=== PATIENT | female | born 1970 | race Caucasian/White ===

== ENCOUNTER 2016-10-30 16:50 | Emergency (ER) | payer MEDICARE, OTHER ==
[~2016-10-30] VITALS: Ht 172.7 cm; Wt 77.0 kg
[~2016-10-30 16:50] MED LIST: ALBU8.5H
[2016-10-30] MEDS ORDERED: CYCLOBENZAPRINE HCL 10 MG TABLET PO ONE (21:15)
[2016-10-30] MEDS ORDERED: IBUPROFEN 600 MG TABLET PO ONE (22:30)
[2016-10-30 22:31] VITALS: BP 146/81
== END 2016-10-30 22:48 | disposition home or self-care (01) ==
LOC: EMS 16:51
DX: M54.5 Low back pain (principal); J45.909 Unspecified asthma, uncomplicated; F17.210 Nicotine dependence, cigarettes, uncomplicated; V89.0XXA Person injured in unspecified motor-vehicle accident, nontraffic, initial encounter; Y93.89 Activity, other specified; Y92.62 Dock or shipyard as the place of occurrence of the external cause; Y99.8 Other external cause status
CPT/HCPCS: 70450; 72125; 99284; 99406

== ENCOUNTER 2017-08-28 13:05 | Emergency (ER) | payer MEDICARE ==
[~2017-08-28] VITALS: Ht 172.7 cm; Wt 81.8 kg
[~2017-08-28 13:05] MED LIST changes: -ALBU8.5H; +ALBU8.5H8
[2017-08-28 13:15] VITALS: BP 122/73
== END 2017-08-28 14:05 | disposition left against medical advice (07) ==
LOC: EMS 13:06
DX: M25.572 Pain in left ankle and joints of left foot (principal); J45.909 Unspecified asthma, uncomplicated; I47.1 Supraventricular tachycardia; F17.210 Nicotine dependence, cigarettes, uncomplicated
CPT/HCPCS: 99281

== ENCOUNTER 2017-08-30 00:04 | Emergency (ER) | payer MEDICARE ==
[~2017-08-30] VITALS: Ht 160 cm; Wt 59.1 kg
[2017-08-30 00:15] VITALS: BP 135/85
== END 2017-08-30 01:40 | disposition left against medical advice (07) ==
LOC: EMS 00:05
DX: Z53.21 Procedure and treatment not carried out due to patient leaving prior to being seen by health care provider (principal)

== ENCOUNTER 2021-12-27 00:54 | Emergency (ER) | payer BC, MEDICARE ==
[~2021-12-27] VITALS: Ht 172.7 cm; Wt 86.4 kg
[2021-12-27] MEDS ORDERED: BACITRACIN 0.9 GM PACKET OINTMENT TP ONE (02:15)
[2021-12-27] MEDS ORDERED: IBUPROFEN 600 MG TABLET PO ONE (02:15)
[2021-12-27] MEDS ORDERED: SODIUM CHLORIDE 0.9% 250 ML IRRIG SOLUTION BOTTLE IRRIG ONE (02:15)
[2021-12-27] MEDS ORDERED: PERTUSS(ACELL),DIPH,TET VAC/PF 0.5 ML SYRINGE IM. ONE (02:15)
[2021-12-27] MEDS ORDERED: CEPHALEXIN MONOHYDRATE 500 MG CAPSULE PO ONE (02:30)
[2021-12-27] MEDS ORDERED: CEPH-558 PO (02:32)
[2021-12-27 03:00] VITALS: BP 139/77
== END 2021-12-27 03:09 | disposition home or self-care (01) ==
LOC: EMS 01:01
DX: S91.312A Laceration without foreign body, left foot, initial encounter (principal); F12.90 Cannabis use, unspecified, uncomplicated; F17.210 Nicotine dependence, cigarettes, uncomplicated; J45.909 Unspecified asthma, uncomplicated; W10.1XXA Fall (on)(from) sidewalk curb, initial encounter; Y93.89 Activity, other specified; Y92.89 Other specified places as the place of occurrence of the external cause; Y99.8 Other external cause status
CPT/HCPCS: 90471; 90715; 99283

== ENCOUNTER 2022-08-26 18:26 | Emergency (ER) | payer BC ==
[~2022-08-26] VITALS: Ht 172.7 cm; Wt 86.3 kg
[~2022-08-26 18:26] MED LIST changes: +CEPH-558 PO
[2022-08-26 18:48] VITALS: BP 141/62
== END 2022-08-27 00:03 | disposition left against medical advice (07) ==
LOC: EMS 18:26
DX: R51.9 Headache, unspecified (principal); Z53.21 Procedure and treatment not carried out due to patient leaving prior to being seen by health care provider

== ENCOUNTER 2022-08-27 02:03 | Emergency (ER) | payer BC ==
[~2022-08-27] VITALS: Ht 157.5 cm; Wt 86.4 kg
[2022-08-27 02:10] VITALS: BP 138/82
== END 2022-08-27 05:53 | disposition home or self-care (01) ==
LOC: EMS 02:04
DX: S02.32XA Fracture of orbital floor, left side, initial encounter for closed fracture (principal); S02.2XXA Fracture of nasal bones, initial encounter for closed fracture; J45.909 Unspecified asthma, uncomplicated; Z79.899 Other long term (current) drug therapy; Y04.0XXA Assault by unarmed brawl or fight, initial encounter; Y93.89 Activity, other specified; Y92.89 Other specified places as the place of occurrence of the external cause; Y99.8 Other external cause status
CPT/HCPCS: 70486; 99284; Z7502

== ENCOUNTER 2022-12-19 23:10 | Emergency (ER) | payer BC ==
[~2022-12-19] VITALS: Ht 172.7 cm; Wt 90.0 kg
[2022-12-19] MEDS ORDERED: ALBUTEROL SULFATE HFA 90 MCG/PUFF 8 GM INHALER IH ONE (23:45)
[2022-12-19] MEDS ORDERED: IPRATROPIUM BROMIDE 0.5 MG/2.5 ML NEB SOLUTION NEB ONE (23:45)
[2022-12-19] MEDS ORDERED: ALBUTEROL SULFATE 2.5 MG/0.5 ML NEB SOLUTION NEB ONE (23:45)
[2022-12-19] MEDS ORDERED: PredniSONE 20 MG TABLET PO ONE (23:45)
[2022-12-20] MEDS ORDERED: PRED-554 PO (00:29)
[2022-12-20 00:44] VITALS: BP 148/88
== END 2022-12-20 00:45 | disposition home or self-care (01) ==
LOC: EMS 23:10
DX: J45.909 Unspecified asthma, uncomplicated (principal); M19.90 Unspecified osteoarthritis, unspecified site; F17.210 Nicotine dependence, cigarettes, uncomplicated; F12.90 Cannabis use, unspecified, uncomplicated; Z98.51 Tubal ligation status; Z98.890 Other specified postprocedural states
CPT/HCPCS: 94060; 99283; 94640; J7512; J3535